=== PATIENT | female | born 1935 | race African-American/Black ===

== ENCOUNTER → 2016-07-18 | Outpatient (CLI) | payer MEDICARE ==
[2016-07-18 15:17] LABS: AUTOMATED NEUTROPHIL # 1.3 TH/MM3 (1.8-7.7); BASOPHIL % 1.2 % (0.0-2.0); EOSINOPHIL # 0.1 TH/MM3 (0-0.4); EOSINOPHIL % 3.3 % (0.0-4.0); HEMATOCRIT 34.1 % (35.0-46.0); HEMO FLAGS DIFF FINAL; LYMPH % 47.9 % (9.0-44.0); LYMPHOCYTE # 1.6 TH/MM3 (1.0-4.8); MEAN CELL VOLUME 90.8 FL (80.0-100.0); MEAN CORPUSCULAR HEMOGLOBIN 30.9 PG (27.0-34.0); MONO % 8.8 % (0.0-8.0); NEUT % 38.8 % (16.0-70.0); PLATELET COUNT 276 TH/MM3 (150-450); RED BLOOD COUNT 3.76 MIL/MM3 (4.00-5.30); RED CELL DISTRIBUTION WIDTH 13.4 % (11.6-17.2); WHITE BLOOD COUNT 3.3 TH/MM3 (4.0-11.0)
[2016-07-18 15:32] LABS: ANION GAP 4 MEQ/L (5-15); AST (GOT) 20 U/L (15-37); BICARBONATE 33.1 MEQ/L (21.0-32.0); CHLORIDE 104 MEQ/L (98-107); GLOMERULAR FILTRATION RATE 106 ML/MIN (>89); GLUCOSE,FASTING 80 MG/DL (74-99); POTASSIUM 3.9 MEQ/L (3.5-5.1); SODIUM (NA) 141 MEQ/L (136-145)
[2016-07-18 15:36] LABS: ALKALINE PHOSPHATASE 171 U/L (45-117); ALT (GPT) 26 U/L (10-53); BLOOD UREA NITROGEN 12 MG/DL (7-18); HDL CHOLESTEROL 114.2 MG/DL (40.0-60.0); LDL CHOLESTEROL 106 MG/DL (0-99); TOTAL BILIRUBIN ADULT 0.2 MG/DL (0.2-1.0)
== END ==
LOC: CLAB 13:41
PROVIDERS: ATTEND Family Medicine
DX: G25.0 Essential tremor (principal); D50.9 Iron deficiency anemia, unspecified; K25.9 Gastric ulcer, unspecified as acute or chronic, without hemorrhage or perforation; E78.2 Mixed hyperlipidemia
CPT/HCPCS: 36415; 80053; 80061; 85025

== ENCOUNTER → 2017-02-06 | Outpatient (CLI) | payer MEDICARE ==
[2017-02-06 11:01] LABS: AUTOMATED NEUTROPHIL # 1.5 TH/MM3 (1.8-7.7); EOSINOPHIL # 0.1 TH/MM3 (0-0.4); EOSINOPHIL % 2.5 % (0.0-4.0); HEMATOCRIT 32.3 % (35.0-46.0); HEMO FLAGS DIFF FINAL; LYMPH % 45.2 % (9.0-44.0); LYMPHOCYTE # 1.6 TH/MM3 (1.0-4.8); MEAN CELL VOLUME 93.3 FL (80.0-100.0); MEAN CORPUSCULAR HEMOGLOBIN 31.2 PG (27.0-34.0); MEAN CORPUSCULAR HGB CONC 33.4 % (32.0-36.0); MONO % 9.3 % (0.0-8.0); PLATELET COUNT 237 TH/MM3 (150-450); RED BLOOD COUNT 3.46 MIL/MM3 (4.00-5.30); RED CELL DISTRIBUTION WIDTH 13.7 % (11.6-17.2); WHITE BLOOD COUNT 3.5 TH/MM3 (4.0-11.0)
[2017-02-06 11:17] LABS: ANION GAP 7 MEQ/L (5-15); AST (GOT) 23 U/L (15-37); BICARBONATE 28.5 MEQ/L (21.0-32.0); BLOOD UREA NITROGEN 21 MG/DL (7-18); CHLORIDE 106 MEQ/L (98-107); GLOMERULAR FILTRATION RATE 91 ML/MIN (>89); GLUCOSE,FASTING 81 MG/DL (74-99); POTASSIUM 4.1 MEQ/L (3.5-5.1); SODIUM (NA) 141 MEQ/L (136-145)
[2017-02-06 11:22] LABS: ALKALINE PHOSPHATASE 175 U/L (45-117); ALT (GPT) 25 U/L (10-53); HDL CHOLESTEROL 100.2 MG/DL (40.0-60.0); LDL CHOLESTEROL 91 MG/DL (0-99); TOTAL BILIRUBIN ADULT 0.2 MG/DL (0.2-1.0)
== END ==
LOC: CLAB 10:17
PROVIDERS: ATTEND Family Medicine
DX: G25.0 Essential tremor (principal); D50.9 Iron deficiency anemia, unspecified; K25.9 Gastric ulcer, unspecified as acute or chronic, without hemorrhage or perforation; E78.2 Mixed hyperlipidemia
CPT/HCPCS: 36415; 80053; 80061; 85025

== ENCOUNTER → 2017-08-11 | Outpatient (CLI) | payer MEDICARE ==
[2017-08-11 13:02] LABS: AUTOMATED NEUTROPHIL # 1.5 TH/MM3 (1.8-7.7); BASOPHIL % 1.4 % (0.0-2.0); EOSINOPHIL # 0.1 TH/MM3 (0-0.4); EOSINOPHIL % 2.8 % (0.0-4.0); HEMOGLOBIN 11.5 GM/DL (11.6-15.3); LYMPH % 40.5 % (9.0-44.0); LYMPHOCYTE # 1.3 TH/MM3 (1.0-4.8); MEAN CELL VOLUME 92.4 FL (80.0-100.0); MEAN CORPUSCULAR HEMOGLOBIN 31.4 PG (27.0-34.0); MEAN PLATELET VOLUME 8.2 FL (7.0-11.0); MONO % 8.4 % (0.0-8.0); MONOCYTE # 0.3 TH/MM3 (0-0.9); NEUT % 46.9 % (16.0-70.0); PLATELET COUNT 246 TH/MM3 (150-450); RED BLOOD COUNT 3.68 MIL/MM3 (4.00-5.30); RED CELL DISTRIBUTION WIDTH 13.2 % (11.6-17.2); WHITE BLOOD COUNT 3.1 TH/MM3 (4.0-11.0)
[2017-08-11 13:33] LABS: ALBUMIN 3.5 GM/DL (3.4-5.0); ALT (GPT) 24 U/L (10-53); AST (GOT) 21 U/L (15-37); BLOOD UREA NITROGEN 16 MG/DL (7-18); CALCIUM 8.9 MG/DL (8.5-10.1); CHLORIDE 104 MEQ/L (98-107); CHOLESTEROL 189 MG/DL (120-200); CREATININE 0.73 MG/DL (0.50-1.00); GLOMERULAR FILTRATION RATE 93 ML/MIN (>89); GLUCOSE,FASTING 77 MG/DL (74-99); SODIUM (NA) 142 MEQ/L (136-145); TRIGLYCERIDES 20 MG/DL (42-150)
[2017-08-11 13:36] LABS: ALKALINE PHOSPHATASE 163 U/L (45-117); CHOLESTEROL/ HDL RATIO 1.81 RATIO; HDL CHOLESTEROL 104.1 MG/DL (40.0-60.0); LDL CHOLESTEROL 81 MG/DL (0-99); TOTAL BILIRUBIN ADULT 0.2 MG/DL (0.2-1.0); TOTAL PROTEIN 7.5 GM/DL (6.4-8.2)
== END ==
LOC: CLAB 12:03
PROVIDERS: ATTEND Family Medicine
DX: G25.0 Essential tremor (principal); E78.2 Mixed hyperlipidemia
CPT/HCPCS: 36415; 80053; 80061; 85025